=== PATIENT | male | born 1995 | race Hispanic/Latino ===

== ENCOUNTER 2017-03-23 13:04 | Emergency (ER) | payer SELFPAY ==
[2017-03-23 13:26] VITALS: TEMP 98.3
--- NOTE | 2017-03-23 13:39 | ED.PDOC ---
History of Present Illness - General Chief Complaint: Bite: Animal/Insect/Human Stated Complaint: bee sting Time Seen by Provider: 03/23/17 13:32 Source: patient Exam Limitations: no limitations - History of Present Illness Initial Comments: Manoj Pena 21 y/o male stated he was stung by bee on his right hand while outside his truck yesterday and noticed more swelling.Denies SOB blurry vision or itching. Timing/Duration: other - yesterday Severity: mild Improving Factors: nothing Worsening Factors: nothing Associated Symptoms: denies symptoms Allergies/Adverse Reactions: Allergies NO KNOWN ALLERGY Allergy (Verified 03/23/17 13:25) Home Medications: Ambulatory Orders Prednisone 20 mg PO DAILY #14 [place] 03/23/17 hydrOXYzine HCl [Atarax] 0 mg PO TID PRN #14 tab 03/23/17 Review of Systems - Review of Systems Constitutional: States: no symptoms reported EENTM: States: no symptoms reported Respiratory: States: no symptoms reported Cardiology: States: no symptoms reported Gastrointestinal/Abdominal: States: no symptoms reported Genitourinary: States: no symptoms reported Musculoskeletal: States: no symptoms reported Neurological: States: other - redness swelling right hand Past Medical History (General) - Patient Medical History Hx Stroke: No Hx Dementia: No Hx Asthma: No Surgical History: no surgical history - Vaccination History Immunizations Up to Date: Yes - Social History Hx Tobacco Use: No Hx Alcohol Use: Yes - occasional Hx Substance Use: No Hx Substance Use Treatment: No Hx Depression: No - Activities of Daily Living Hospice Agency (if applicable):: None - Female History Patient is a Female of Child Bearing Age (10 -59 yrs old): No Patient : No Family Medical History - Family History Mother Family History: Unknown Physical Exam - Physical Exam General Appearance: Alert, No apparent distress Eye Exam: bilateral normal Ears, Nose, Throat: hearing grossly normal, normal ENT inspection Neck: non-tender, supple Respiratory: chest non-tender, lungs clear, normal breath sounds Cardiovascular/Chest: normal peripheral pulses, regular rate, rhythm, no murmur Peripheral Pulses: radial,right: 1+, radial,left: 1+ Gastrointestinal/Abdominal: normal bowel sounds, non tender, soft Back Exam: normal inspection Extremity: normal range of motion, other - swelling dorsal aspect right hand Neurologic: alert, oriented x 3 Skin Exam: normal color, warm/dry Progress - Progress Progress: 03/23/17 13:54 Vital Signs - 8 hr 03/23/17 13:15 Temperature 98.3 F Pulse Rate [ 75 pulse ox] Respiratory 20 Rate Blood Pressure 126/82 [Left Arm] O2 Sat by Pulse 97 Oximetry Departure - Departure Clinical Impression: Bee sting reaction Qualifiers: Encounter type: initial encounter Injury intent: accidental or unintentional Qualified Code(s): T63.441A - Toxic effect of venom of bees, accidental ( unintentional), initial encounter Swelling of hand Qualifiers: Laterality: right Qualified Code(s): M79.89 - Other specified soft tissue disorders Time of Disposition: 13:55 Disposition: Discharge to Home or Self Care Condition: Good Departure Forms: ED Discharge - Pt. Copy, Patient Portal Self Enrollment Instructions: DI for Insect Bites and Stings Prescriptions: hydrOXYzine HCl [Atarax] 0 mg PO TID PRN #14 tab PRN Reason: Allergies Prednisone 20 mg PO DAILY #14 [place] Home Medications: Ambulatory Orders Prednisone 20 mg PO DAILY #14 [place] 03/23/17 hydrOXYzine HCl [Atarax] 0 mg PO TID PRN #14 tab 03/23/17
[2017-03-23] MEDS ORDERED: DEXAMETHASONE INJ 4 MG/ML VIAL IM ONE (13:52)
[2017-03-23] MEDS ORDERED: predniSONE 10 MG TAB PO ONE (13:53)
[2017-03-23 14:42] VITALS: BP 126/72; O2SAT 99
== END 2017-03-23 14:42 | disposition home or self-care (01) ==
LOC: ER 13:04
DX: T63.441A Toxic effect of venom of bees, accidental (unintentional), initial encounter (principal)
CPT/HCPCS: J1100; J7512